=== PATIENT | female | born 1965 | race Caucasian/White ===

== ENCOUNTER → 2020-03-27 16:15 | Outpatient (BNVA) | payer OTHER, SELFPAY | PROVIDERS: Family Provider Family Medicine; PCP Family Medicine; Visit Provider Nurse Practitioner Women's Health | DX: Z01.419 Encounter for gynecological examination (general) (routine) without abnormal findings (principal); N91.2 Amenorrhea, unspecified; N63.20 Unspecified lump in the left breast, unspecified quadrant | CPT/HCPCS: 83001; 84450 ==

== ENCOUNTER 2020-04-11 10:30 | Outpatient (CLI) | payer OTHER, SELFPAY ==
--- NOTE | 2020-04-11 10:30 | MM_ITS ---
WS: [id number] BILATERAL DIGITAL DIAGNOSTIC MAMMOGRAM MAMMOGRAPHY WITH CAD CLINICAL INFORMATION: Left breast mass COMPARISON: February 10, 2016 TECHNIQUE: Bilateral CC, MLO, and ML views. FINDINGS: The breasts are composed of heterogeneous fibroglandular density, which can limit the detection of sm all underlying mass lesions. Calcified oil cyst upper-outer right breast. Similar-appearing bilateral breast cysts. Cluster calcifications right breast with prior stereotactic biopsy marker Palpable markers left breast. No definite underlying mammographic abnormalities. Ultrasound is pendin g. Lucent centered calcifications. ULTRASOUND BREAST BILATERAL TECHNIQUE: Ultrasound bilateral breast focused area of concern. CLINICAL INFORMATION: Left breast mass COMPARISON: Ultrasound February 10, 2016 FINDINGS: Ultrasound RIGHT breast at the 7:00 and 8, 9, o'clock positions. Dense underlying breast tissue. Inci dental simple cyst measuring 5.3 mm at the 7:00 position. A few dilated ducts at the 8:00 position. I ncidental lymph node at the 9:00 position. No pathologic mass or lesion in the RIGHT breast. Ultrasound left breast at the 12:00 position demonstrates a hypoechoic cystic appearing lesion measur ing 1.4 x 1.2 x 1.4 CM. Some internal echoes likely due to proteinaceous debris. This is probably a b enign slightly complex cyst and recommend 6 month follow-up to confirm stability. Incidental small cysts at the 4:00 position measuring 4 to 6 mm. MM/[place] [id number] IMPRESSION: Recommend 6 month follow-up left breast diagnostic mammogram and ul trasound with attention to the 12:00 lesion BI-RADS: 3-Probably Benign FOLLOW UP: 6 Month Follow-up
--- NOTE | 2020-04-11 11:00 | US_ITS ---
WS: [id number] BILATERAL DIGITAL DIAGNOSTIC MAMMOGRAM MAMMOGRAPHY WITH CAD CLINICAL INFORMATION: Left breast mass COMPARISON: February 10, 2016 TECHNIQUE: Bilateral CC, MLO, and ML views. FINDINGS: The breasts are composed of heterogeneous fibroglandular density, which can limit the detection of sm all underlying mass lesions. Calcified oil cyst upper-outer right breast. Similar-appearing bilateral breast cysts. Cluster calcifications right breast with prior stereotactic biopsy marker Palpable markers left breast. No definite underlying mammographic abnormalities. Ultrasound is pendin g. Lucent centered calcifications. ULTRASOUND BREAST BILATERAL TECHNIQUE: Ultrasound bilateral breast focused area of concern. CLINICAL INFORMATION: Left breast mass COMPARISON: Ultrasound February 10, 2016 FINDINGS: Ultrasound RIGHT breast at the 7:00 and 8, 9, o'clock positions. Dense underlying breast tissue. Inci dental simple cyst measuring 5.3 mm at the 7:00 position. A few dilated ducts at the 8:00 position. I ncidental lymph node at the 9:00 position. No pathologic mass or lesion in the RIGHT breast. Ultrasound left breast at the 12:00 position demonstrates a hypoechoic cystic appearing lesion measur ing 1.4 x 1.2 x 1.4 CM. Some internal echoes likely due to proteinaceous debris. This is probably a b enign slightly complex cyst and recommend 6 month follow-up to confirm stability. Incidental small cysts at the 4:00 position measuring 4 to 6 mm. US/US breast BI limited* [id number] IMPRESSION: Recommend 6 month follow-up left breast diagnostic mammogram and ul trasound with attention to the 12:00 lesion BI-RADS: 3-Probably Benign FOLLOW UP: 6 Month Follow-up
== END 2020-04-11 10:31 | disposition home or self-care (01) ==
LOC: RADSHAW 10:33
PROVIDERS: PCP Family Medicine; Visit Provider Nurse Practitioner Women's Health
DX: N63.20 Unspecified lump in the left breast, unspecified quadrant (principal)
CPT/HCPCS: 76642; 77066

== ENCOUNTER 2020-10-16 07:49 | Outpatient (CLI) | payer OTHER, SELFPAY ==
--- NOTE | 2020-10-16 08:00 | MM_ITS ---
WS: [id number] Left breast diagnostic digital mammogram, 10/16/2020 Clinical Data: 6 month follow up Comparison: 04/11/2020, 02/10/2016, 07/22/2015, 6 07/03/2015, 01/17/2013, 06/18/2011. Findings: The left breast shows heterogeneous density. No spiculated masses nor clustered calcifications are se en. There are no secondary signs of carcinoma. MM/[place] [id number] Impression: 1. Negative left breast mammogram and recommend return to annual screening mamm ograms. 2. Left breast ultrasound. BIRADS: 2-Benign FOLLOW UP: See Report The CAD tool drawing checker was used.
--- NOTE | 2020-10-16 08:45 | US_ITS ---
WS: [id number] Left breast ultrasound, 10/16/2020 Clinical Data: 6 month follow up Comparison: Left breast ultrasound, 04/11/2020. Findings: The left breast demonstrated a complex cyst measuring 1.17 x 1.22 x 1.23 cm located 2 cm from the nip ple at the 12:00 position. The wall is well-defined. There has been no change in the appearance of th is cyst. There is minimal debris within the cyst. US/US breast LT limited* [id number] Impression: 1. Complex left breast cyst unchanged. 2. Recommend repeat left breast ultrasound in 6 months. BIRADS: 2-Benign FOLLOW UP: See Report
== END 2020-10-16 07:50 | disposition home or self-care (01) ==
LOC: RADSHAW 07:51
PROVIDERS: Family Provider Family Medicine; PCP Family Medicine; Visit Provider Nurse Practitioner Women's Health
DX: N63.25 Unspecified lump in the left breast, overlapping quadrants (principal)
CPT/HCPCS: 76642; 77065

== ENCOUNTER → 2022-06-10 11:15 | Outpatient (BNVA) | payer OTHER, SELFPAY | PROVIDERS: Family Provider Family Medicine; PCP Family Medicine; Visit Provider Nurse Practitioner Women's Health | DX: Z01.419 Encounter for gynecological examination (general) (routine) without abnormal findings (principal) | CPT/HCPCS: 87624 ==

== ENCOUNTER 2022-06-14 15:30 | Outpatient (CLI) | payer OTHER, SELFPAY ==
--- NOTE | 2022-06-14 15:37 | MM_ITS ---
WS: [id number] BILATERAL 3D TOMOSYNTHESIS DIGITAL SCREENING MAMMOGRAPHY WITH CAD CLINICAL INFORMATION: Z12.39 - Encounter for other screening for malignant neop... HISTORY: Screening mammogram. Chronic LEFT breast lump unchanged. COMPARISON: April 11, 2020 TECHNIQUE: Bilateral CC and MLO views. FINDINGS: The breasts are composed of heterogeneous fibroglandular density tissue, which can limit the detectio n of small underlying mass lesions. Dystrophic calcifications upper outer RIGHT breast. Punctate and lucent centered calcifications. Biopsy clip upper outer RIGHT breast posterior depth with adjacent ca lcifications. No suspicious mass, asymmetry, calcifications, or architectural distortion. No evidence of malignancy. MM/[place] [id number] IMPRESSION: BI-RADS: 2-Benign FOLLOW UP: 1 Year Follow-up Recommend return to annual screening mammography.
== END 2022-06-14 15:31 | disposition home or self-care (01) ==
PROVIDERS: PCP Family Medicine; Visit Provider Nurse Practitioner Women's Health
DX: Z12.31 Encounter for screening mammogram for malignant neoplasm of breast (principal)
CPT/HCPCS: 77063; 77067

== ENCOUNTER 2024-07-23 16:36 | Outpatient (CLI) | payer OTHER, SELFPAY ==
--- NOTE | 2024-07-23 16:46 | XRR_ITS ---
PROCEDURE INFORMATION: Exam: XR Right Hip Exam date and time: 07/23/2024 4:51 PM Age: 59 years old Clinical indication: Hip pain; Right hip TECHNIQUE: Imaging protocol: Radiologic exam of the right hip. Views: 1 view hip with pelvis when performed. COMPARISON: No relevant prior studies available. FINDINGS: Bones/joints: No fractures are appreciated. There is joint space narrowing with small osteophytes and subchondral cysts. Bony mineralization is otherwise normal. Soft tissues: Unremarkable. XR/XR hip RT 2-3V wo/w pel* [id number] IMPRESSION: 1. Osteoarthritis.
== END 2024-07-23 16:37 | disposition home or self-care (01) ==
LOC: RAD 16:37
PROVIDERS: PCP Family Medicine; Visit Provider Family Medicine
DX: M16.11 Unilateral primary osteoarthritis, right hip (principal)
CPT/HCPCS: 73502; J1010

== ENCOUNTER → 2024-10-18 12:49 | Outpatient (BNVA) | payer OTHER, SELFPAY | PROVIDERS: PCP Family Medicine; Visit Provider Nurse Practitioner Women's Health | DX: N95.9 Unspecified menopausal and perimenopausal disorder (principal) | CPT/HCPCS: 82670 ==

== ENCOUNTER → 2024-11-16 11:30 | Outpatient (BNVA) | payer OTHER, SELFPAY | PROVIDERS: PCP Family Medicine; Visit Provider Family Medicine | DX: Z00.00 Encounter for general adult medical examination without abnormal findings (principal); M19.90 Unspecified osteoarthritis, unspecified site; E05.00 Thyrotoxicosis with diffuse goiter without thyrotoxic crisis or storm; E03.9 Hypothyroidism, unspecified | CPT/HCPCS: 80053; 80061; 82607; 83036; 84443; 85025 ==

== ENCOUNTER → 2025-01-09 13:39 | Outpatient (BNVA) | payer OTHER, SELFPAY | PROVIDERS: PCP Family Medicine; Visit Provider Nurse Practitioner Women's Health | DX: N95.9 Unspecified menopausal and perimenopausal disorder (principal) | CPT/HCPCS: 82670 ==

== ENCOUNTER → 2025-01-16 14:21 | Outpatient (BNVA) | payer OTHER, SELFPAY | PROVIDERS: PCP Family Medicine; Visit Provider Nurse Practitioner Women's Health | DX: M25.50 Pain in unspecified joint (principal); R53.83 Other fatigue; N95.9 Unspecified menopausal and perimenopausal disorder | CPT/HCPCS: 82306; 82728 ==

== ENCOUNTER → 2025-10-03 16:10 | Outpatient (BNVA) | payer OTHER, SELFPAY | PROVIDERS: PCP Family Medicine; Visit Provider Family Medicine | DX: Z00.00 Encounter for general adult medical examination without abnormal findings (principal); E05.00 Thyrotoxicosis with diffuse goiter without thyrotoxic crisis or storm; M19.90 Unspecified osteoarthritis, unspecified site; E03.9 Hypothyroidism, unspecified | CPT/HCPCS: 80053; 80061; 82306; 82533; 82607; 84443; 85025 ==

== ENCOUNTER → 2025-10-11 12:36 | Outpatient (BNVA) | payer OTHER, SELFPAY | PROVIDERS: PCP Family Medicine; Visit Provider Nurse Practitioner Women's Health | DX: M19.90 Unspecified osteoarthritis, unspecified site (principal); N95.9 Unspecified menopausal and perimenopausal disorder | CPT/HCPCS: 82670; 84270 ==